=== PATIENT | female | born 1945 | race Caucasian/White ===

== ENCOUNTER 2018-08-14 11:54 | Emergency (ER) | payer OTHER ==
--- NOTE | 2018-08-14 12:02 | PDOC ---
History of Present Illness <Rajani Magañaan - Last Filed: 08/14/18 16:55> - History of Present Illness Initial Comments: HTN, HLD, afib (Eliquis), SLE (on plaquinil) and hypothyroidism presenting with abdominal pain for three days. States that her pain actually started in her back three days prior on the right side and then began to radiate around to her right pelvis. She has also noticed some increase urinary frequency. Of note, she is from [place] and she Denies fevers, chills, dysuria, nausea, vomiting, diarrhea, or other symptoms. 08/14/18 12:03 <Howie Aguilar - Last Filed: 08/14/18 17:09> - General Chief Complaint: Pain Stated Complaint: ABD PAIN Time Seen by Provider: 08/14/18 12:01 Past History <Kyle Magaña - Last Filed: 08/14/18 16:55> <Howie Aguilar - Last Filed: 08/14/18 17:09> - Past Medical History Allergies/Adverse Reactions: Allergies Allergy/AdvReac Type Severity Reaction Status Date / Time Cephalosporins Allergy Verified 08/14/18 11:57 Penicillins Allergy Verified 08/14/18 11:57 Sulfa (Sulfonamide Allergy Verified 08/14/18 11:57 Antibiotics) Home Medications: Ambulatory Orders Aspirin [ASA -] 81 mg PO DAILY 08/14/18 Atorvastatin Ca 08/14/18 Benicar 08/14/18 Citracal Soft Chew 08/14/18 Diltiazem HCl 08/14/18 Eliquis 08/14/18 Evista 08/14/18 Hydroxychloroquine Sulfate 08/14/18 Lyrica 08/14/18 Metoprolol Tartrate 08/14/18 Multivit ([facility] Formulary) 08/14/18 Synthroid 08/14/18 Vitamin B12 08/14/18 Vitamin D - 08/14/18 Review of Systems - Review of Systems Constitutional: No: Chills, Diaphoresis, Fever HEENTM: No: Blurred Vision, Tearing, Cataracts Respiratory: No: Cough, Orthopnea, Shortness of Breath Cardiac (ROS): No: Edema, Irregular Heart Rate : No: Burning, Dysuria, Discharge Musculoskeletal: No: Back Pain, Gout, Joint Pain Integumentary: No: Bruising, Erythema, Flushing, Lesions Neurological: No: Headache, Numbness, Paresthesia Psychiatric: No: Anxiety, Depression Hematologic/Lymphatic: Yes: Other (afib on eliquis) <Howie Aguilar - Last Filed: 08/14/18 17:09> *Physical Exam - Vital Signs Last Vital Signs Temp Pulse Resp BP Pulse Ox 97.7 F 72 20 159/79 97 08/14/18 14:27 08/14/18 14:27 08/14/18 14:27 08/14/18 14:27 08/14/18 14:27 <Kyle Magaña - Last Filed: 08/14/18 16:55> - Physical Exam General Appearance: Yes: Nourished, Appropriately Dressed. No: Apparent Distress HEENT: positive: EOMI, CARL[place], Normal ENT Inspection, Normal Voice Neck: positive: Trachea midline, Normal Thyroid, Supple. negative: Tender, Rigid Respiratory/Chest: positive: Lungs Clear, Normal Breath Sounds. negative: Chest Tender, Respiratory Distress, Accessory Muscle Use Cardiovascular: positive: Regular Rhythm, Regular Rate Gastrointestinal/Abdominal: positive: Normal Bowel Sounds, Tender (RLQ tenderness), Flat, Soft Musculoskeletal: positive: CVA Tenderness, CVA Tenderness (R). negative: Normal Inspection Extremity: positive: Normal Capillary Refill, Normal Inspection, Normal Range of Motion. negative: Tender Integumentary: positive: Normal Color, Dry, Warm Neurologic: positive: Fully Oriented, Alert, Normal Mood/Affect, Normal Response , Motor Strength 5/5 <Howie Aguilar - Last Filed: 08/14/18 17:09> ED Treatment Course - LABORATORY CBC & Chemistry Diagram: 08/14/18 12:59 08/14/18 12:59 - ADDITIONAL ORDERS Additional order review: Laboratory Results 08/14/18 08/14/18 08/14/18 14:00 12:59 12:59 PT with INR 23.0 H INR 2.37 H Sodium 137 Potassium 4.6 Chloride 100 Carbon Dioxide 26 Anion Gap 11 BUN 12 Creatinine 0.7 Est GFR (CKD-EPI)AfAm 98.23 Est GFR (CKD-EPI)NonAf 84.75 Random Glucose 85 Calcium 9.0 Total Bilirubin 0.5 AST 17 ALT 10 L Alkaline Phosphatase 66 Total Protein 6.7 Albumin 3.6 Total Amylase 77 Lipase 119 Urine Color Yellow Urine Appearance Clear Urine pH 6.0 Urine Protein Negative Urine Glucose (UA) Negative Urine Ketones Negative Urine Blood Trace-intact Urine Nitrite Negative Urine Bilirubin Negative Urine Urobilinogen 0.2 Ur Leukocyte Esterase Negative 08/14/18 12:59 RBC 4.36 MCV 84.0 MCHC 32.8 RDW 15.4 MPV 9.2 Neutrophils % 64.1 Lymphocytes % 26.0 Monocytes % 7.3 Eosinophils % 2.3 Basophils % 0.3 - Medications Given in the ED: ED Medications Discontinued Medications Generic Name Dose Route Start Last Admin Trade Name Vickey PRN Reason Stop Dose Admin Acetaminophen 1,000 mg 08/14/18 13:48 08/14/18 13:53 Ofirmev Injection - IVPB 08/14/18 13:49 1,000 mg ONCE ONE Administration <Kyle Magaña - Last Filed: 08/14/18 16:55> - LABORATORY CBC & Chemistry Diagram: 08/14/18 12:59 08/14/18 12:59 <Howie Aguilar - Last Filed: 08/14/18 17:09> Medical Decision Making - Medical Decision Making 73 year old female with PMH of HTN, HLD, SLE, and afib presenting with right mid back pain radiating to the front of her lower right pelvis. CT x 2 negative for obstructive uropathy but some non obstructing calculi in the proximal urinary system. Patient's symptoms improved. Will DC with return precautions and follow up instructions to see her PCP if symptoms worsen. 08/14/18 17:00 <Howie Aguilar - Last Filed: 08/14/18 17:09> *DC/Admit/Observation/Transfer <Kyle Magaña - Last Filed: 08/14/18 16:55> - Discharge Dispostion Decision to Admit order: No <Howie Aguilar - Last Filed: 08/14/18 17:09> Diagnosis at time of Disposition: Flank pain - Discharge Dispostion Disposition: HOME Condition at time of disposition: Improved - Referrals Referrals: [facility] [Provider Group] - Patient Instructions Printed Discharge Instructions: DI for Flank Pain Additional Instructions: Please use Tylenol for your pain if needed. We saw some small kidney stones in both of your kidneys but they are not blocking anything and this is a common finding but not likely the cause of your abdominal pain. Please see your PCP as soon as you return to [place]. Please return to your nearest ED if you have any issues on the road. If you happen to stick around this area, you can use our clinica for any longer term medical care needs, listed on this sheet.
[2018-08-14 12:30] VITALS: BMI 27.4
[2018-08-14 13:13] LABS: BASO % 0.3 % (0-2.0); EOS % 2.3 % (0-4.5); HEMATOCRIT 36.6 % (32.4-45.2); MCH 27.6 pg (25.7-33.7); MCHC 32.8 g/dl (32.0-36.0); MEAN PLT VOLUME 9.2 fl (7.5-11.1); MONO % 7.3 % (3.8-10.2); NEUT % 64.1 % (42.8-82.8); PLATELET COUNT 238 K/MM3 (134-434); RBC 4.36 M/mm3 (3.60-5.2); RDW 15.4 % (11.6-15.6); WHITE BLOOD COUNT 5.8 K/mm3 (4.0-10.8)
[2018-08-14 13:22] LABS: ALBUMIN 3.6 g/dl (3.4-5.0); BILIRUBIN,TOTAL 0.5 mg/dl (0.2-1); CREATININE 0.7 mg/dl (0.55-1.3); POTASSIUM 4.6 mmol/L (3.5-5.1); TOT PROT 6.7 g/dl (6.4-8.2)
[2018-08-14 13:41] LABS: INR 2.37 (0.82-1.09)
[2018-08-14] MEDS ORDERED: ACETAMINOPHEN 1000 MG/100 ML VIAL (NON FORMULARY) IVPB ONE (13:48)
--- NOTE | 2018-08-14 13:48 | PDOC ---
Attending Attestation - Resident Resident Name: Howie Aguilar - ED Attending Attestation I have performed the following: I have examined & evaluated the patient, The case was reviewed & discussed with the resident, I agree w/resident's findings & plan, Exceptions are as noted - HPI HPI: 08/14/18 13:45 73 F with h/o HTN, HLD, SLE, afib on eliquis, presenting to ED with R side pain. Pt states that it started 3 days ago. The pain migrates from her R flank into her R groin and feels "cramp-like". Pt denies F/C. Denies N/V/D. Denies dysuria. Has never had pain like this before. Pt reports prior cholecystectomy. - Physicial Exam PE: 08/14/18 13:47 "GENERAL: Awake, alert, and fully oriented, in no acute distress. HEAD: No signs of trauma EYES: PERRLA, EOMI, sclera anicteric, conjunctiva clear ENT: Auricles normal inspection, hearing grossly normal, nares patent, oropharynx clear without exudates. Moist mucosa NECK: Nontender, no stepoffs, Normal ROM, supple, no lymphadenopathy, JVD, or masses LUNGS: Breath sounds equal, clear to auscultation bilaterally. No wheezes, and no crackles HEART: Regular rate and rhythm, normal S1 and S2, no murmurs, rubs or gallops BACK: + R CVAT ABDOMEN: Soft, nontender, normoactive bowel sounds. No guarding, no rebound. No masses EXTREMITIES: Normal range of motion, no edema. No clubbing or cyanosis. No cords, erythema, or tenderness NEUROLOGICAL: Cranial nerves II through XII intact. 5/5 strength and sensation in all extremities, Normal speech, normal gait, normal cerebellar function SKIN: Warm, Dry, normal turgor, no rashes or lesions noted. - Medical Decision Making 08/14/18 13:47 73 F with R side pain radiating from flank to groin. Exam with + R CVAT. No abdominal tenderness to suggest appy/colitis. - Labs - CTAP - Pain control 08/14/18 17:[address] unremarkable PT reassessed - pain improved with tylenol Pt is well appearing, with normal vitals. Clinically stable for DC at this time. I discussed the physical exam findings, ancillary test results and final diagnoses with the patient. I answered all of the patient's questions. The patient was satisfied with the care received and felt comfortable with the discharge plan and treatment plan. The patient agrees to follow up with the primary care physician within 24-72 hours.
[2018-08-14] MEDS ORDERED: ACETAMINOPHEN INJECTION 100 ML IVPB ONE (13:52)
[2018-08-14 14:28] VITALS: BP 159/79; PULSE 72; TEMP 97.7
== END 2018-08-14 17:30 | disposition home or self-care (01) ==
LOC: FER 11:54
PROC: 3E033NZ Introduction of Analgesics, Hypnotics, Sedatives into Peripheral Vein, Percutaneous Approach (ICD-10-PCS; principal; 2018-08-14)
DX: R10.31 Right lower quadrant pain (principal); I10 Essential (primary) hypertension; E78.5 Hyperlipidemia, unspecified; M32.9 Systemic lupus erythematosus, unspecified; I48.91 Unspecified atrial fibrillation; Z79.01 Long term (current) use of anticoagulants; E03.9 Hypothyroidism, unspecified
CPT/HCPCS: 36415; 74176-TC; 74177-TC; 80053; 81003; 81015; 82150; 83690; 85025; 85610; 87086; 99283-25; J0131